=== PATIENT | female | born 1935 | race Caucasian/White ===

== ENCOUNTER → 2016-07-30 | Outpatient (CLI) | payer MEDICARE ==
[~2016-07-30] MED LIST: ADULT LOW DOSE81 MG PO; CENTRUM SILVER1 EACH PO; TAMOXIFEN CITRA20 MG PO; TOPROL XL 25MG25 MG PO
--- NOTE | 2016-08-02 13:02 | RADIOLOGY REPORT PS360 ---
DIG MAMM-SCREEN JESSICA W/CAD CAD Screening ORDERING PHYSICIAN : ROGERIO QUESADA MD PATIENT AGE: 81 years GENDER: Female COMPARISON: Previous mammograms: July 2015 mammogram following ultrasound-guided biopsy Bilateral mammograms from June 2015 and November 2011 INDICATION: Routine screening right lumpectomy Follow-up cancer patient very kyphotic difficult to image TECHNIQUE: Standard CC and MLO images were obtained. R2 CAD reviewed. FINDINGS: Moderately dense breast tissue bilateral. LEFT BREAST... Dense coarse calcifications central left breast again noted. More peripherally towards upper-outer quadrant left breast there are stable small microcalcifications which are progressing at the deep lateral left breast. Would benefit from magnification spot views in the patient returns at this labeled X.. CC and 90 degree view recommended Slightly nodular character retroareolar region left breast may benefit from ultrasound to evaluate for ductal prominence. 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 There is been interval lumpectomy. We now see clips at the right axilla from node dissection. The Postbiopsy metallic marker clip is been resected, reflecting the lumpectomy. Surprisingly minimal surgical changes otherwise in the upper-outer quadrant right breast However there is a density labeled a at the far lateral axillary tail. This ovoid density measures 11 mm. & warrants close follow-up. I suggest an ultrasound to further evaluate initially along with spot views including 90 degree view. This patient benefit from a MRI follow-up to exclude any residual or recurrent tumor There is also an area labeled B which should be evaluated the patient returns. A area of minimal density at the lateral retroareolar region. . . The patient has a large skin mole shadow upper outer quadrant right breast which is been present since 2011 and is not changed significantly, vaguely seen. There are some benign appearing dense calcifications inferior right breast again noted. IMPRESSION 1. Interval lumpectomy upper-outer quadrant right breast with axillary node dissection 2. RIGHT BREASt.: Densities labeled A and B warrant spot views and ultrasound Area A: 11 mm ovoid recurrent or residual nodular density at the deep axillary right breast in region of previous lumpectomy is most important to further evaluate.. Area B: is lateral superior retroareolar region and may merely be summation shadow Which warrants further evaluation. With spot views and ultrasound 3.. 3. LEFT BREAST Additional small calcifications upper-outer quadrant left breast area labeled X would benefit from magnification spot views when patient returns Also suggest ultrasound left breast evaluate ductal prominence retroareolar region. 4. Alternatively, This high-risk patient may benefit from follow-up MRI BI-RADS CATEGORY: 0 RECOMMENDED FOLLOWUP: ADD ADDITIONAL IMAGING Bilateral Spot views and bilateral breast ultrasound (A letter has been sent to the patient regarding results of the study.)
== END ==
LOC: RAD 09:00
DX: Z12.31 Encounter for screening mammogram for malignant neoplasm of breast (principal); Z85.3 Personal history of malignant neoplasm of breast
CPT/HCPCS: G0202